=== PATIENT | male | born 1985 | race Caucasian/White ===

== ENCOUNTER 2016-12-24 19:41 | Emergency (ER) | payer OTHER ==
[~2016-12-24] VITALS: Ht 190.5 cm; Wt 97.5 kg
[2016-12-24 19:41] VITALS: BP 112/75; PULSE 101; RESP 18; TEMP 98.3; O2SAT 98
--- NOTE | 2016-12-24 19:47 | NUR ---
Patient triaged and placed in waiting room. VSS and patient appears in no acute distress at this time. Accompanied by SELF, awaiting available bed, and MD notified of need for MSE.
--- NOTE | 2016-12-24 19:49 | NUR ---
Patient to [facility] for evaluation. Side rails up. Report given to ASHLEY Umana.
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
--- NOTE | 2016-12-24 19:55 | NUR ---
YESSY Bob examing patient.
[2016-12-24] MEDS ORDERED: cefTRIAXone 1 GM VIAL IM ONE (21:00)
[2016-12-24] MEDS ORDERED: BACITRACIN 1 GM OINT TP ONE (21:00)
[2016-12-24] MEDS ORDERED: IBUPROFEN 800 MG TABLET PO ONE (21:00)
--- NOTE | 2016-12-24 21:05 | NUR ---
Patient given written and verbal discharge instructions and verbalizes understanding. ER MD discussed with patient the results and treatment provided. Patient in stable condition. ID arm band removed. Rx of Keflex, Bactrim given. Patient educated on pain management and to follow up with PMD. Pain Scale 0/10. Opportunity for questions provided and answered.
[2016-12-24 21:10] VITALS: BP 108/72; PULSE 89; RESP 18; TEMP 98.1; O2SAT 100
[2016-12-24] MEDS ORDERED: LIDOCAINE 1%, 20 ML MDV 20 ML ONE (21:16)
== END 2016-12-24 21:05 | disposition home or self-care (01) ==
LOC: SED 19:41
DX: T22.212A Burn of second degree of left forearm, initial encounter (principal); X18.XXXA Contact with other hot metals, initial encounter; Y93.89 Activity, other specified; Y99.8 Other external cause status; Y92.89 Other specified places as the place of occurrence of the external cause
CPT/HCPCS: 96372; 99283; J0696; J2001